=== PATIENT | male | born 1990 ===

== ENCOUNTER 2018-10-23 20:48 | Emergency (ER) | payer OTHER ==
[2018-10-23 21:04] VITALS: BP 117/71; PULSE 61; TEMP 98.4; BMI 27.3
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
[2018-10-23] MEDS ORDERED: IBUPROFEN 600 MG TABLET (FP) PO ONE ×2 (21:38→21:39)
== END 2018-10-23 21:42 | disposition home or self-care (01) ==
LOC: FER 20:48
DX: S16.1XXA Strain of muscle, fascia and tendon at neck level, initial encounter (principal); F31.9 Bipolar disorder, unspecified; V43.52XA Car driver injured in collision with other type car in traffic accident, initial encounter; Y93.89 Activity, other specified; Y92.410 Unspecified street and highway as the place of occurrence of the external cause
CPT/HCPCS: 99283-25